=== PATIENT | male | born 1990 | race Caucasian/White ===

== ENCOUNTER 2017-08-30 15:33 | Emergency (ER) | payer OTHER ==
[~2017-08-30] VITALS: Ht 170.2 cm; Wt 81.6 kg
[2017-08-30 18:14] VITALS: BP 125/75
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
[2017-08-30] MEDS ORDERED: IBUPROFEN600 MG ORAL (18:53)
[2017-08-30] MEDS ORDERED: SOMA250 MG PO (18:53)
[2017-08-30] MEDS ORDERED: ROBAXIN-750750 MG PO (18:53)
[2017-08-30 19:10] VITALS: BP 129/81
--- NOTE | 2017-08-31 10:42 | Diagnostic Imaging Report ---
Indication: Neck pain Technique: MRI examination of the cervical spine was performed in a 1.5 Jossy magnet. Sequences obtained include sagittal and axial T1 and T2 fast spin echo, and sagittal STIR. No IV gadolinium was given Comparison: none Findings: There is considerable motion limiting evaluation. No obvious abnormalities of the cervical portion of the spinal cord demonstrated. There is no cord compression. Bone marrow signal is grossly normal. There is no malalignment. There is some loss of the central T2 hyperintense signal within some of the intervertebral discs which appear relatively well preserved in height. There is no disc herniation. No soft tissue swelling or abnormal fluid collections are identified. Impression: Limited evaluation due to motion. Minimal degenerative disc disease.
== END 2017-08-30 19:10 | disposition home or self-care (01) ==
LOC: EDBD 15:33 → EMR 16:16
DX: S16.1XXA Strain of muscle, fascia and tendon at neck level, initial encounter (principal); V43.62XA Car passenger injured in collision with other type car in traffic accident, initial encounter; Y92.410 Unspecified street and highway as the place of occurrence of the external cause; M62.838 Other muscle spasm; M50.30 Other cervical disc degeneration, unspecified cervical region
CPT/HCPCS: 72040; 72141; 99282